=== PATIENT | male | born 1990 | race Caucasian/White ===

== ENCOUNTER 2021-12-27 23:06 | Emergency (ER) | payer OTHER ==
[2021-12-27 23:24] VITALS: BP 155/77; PULSE 70; TEMP 99.3; BMI 19.0
== END 2021-12-28 04:33 | disposition home or self-care (01) ==
LOC: JER 23:06
PROC: 0H98XZZ Drainage of Buttock Skin, External Approach (ICD-10-PCS; principal; 2021-12-27)
DX: L02.31 Cutaneous abscess of buttock (principal)
CPT/HCPCS: 87070; 87205; 99282-25